=== PATIENT | male | born 1990 | race Caucasian/White ===

== ENCOUNTER 2022-12-12 13:23 | Emergency (ER) | payer SELFPAY ==
[~2022-12-12] VITALS: Ht 170.2 cm; Wt 75.0 kg
[2022-12-12 13:49] VITALS: BP 127/75
[2022-12-12 14:00] VITALS: BP 117/78
[2022-12-12 14:15] VITALS: BP 123/87
[2022-12-12 14:31] VITALS: BP 105/59
[2022-12-12] MEDS ORDERED: CEPHALEXIN500 MG PO ×2 (15:05→15:36)
[2022-12-12 15:28] VITALS: BP 105/59
== END 2022-12-12 15:38 | disposition home or self-care (01) | DRG 605 ==
LOC: ED 13:23
PROC: 0HQDXZZ Repair Right Lower Arm Skin, External Approach (ICD-10-PCS; principal; 2022-12-12)
DX: S51.811A Laceration without foreign body of right forearm, initial encounter (principal); W26.8XXA Contact with other sharp object(s), not elsewhere classified, initial encounter; Y92.008 Other place in unspecified non-institutional (private) residence as the place of occurrence of the external cause